=== PATIENT | male | born 1955 | race Caucasian/White ===

== ENCOUNTER 2025-04-12 14:45 | Emergency (ER) | payer MEDICARE, BC, SELFPAY ==
[2025-04-12] VITALS (9 sets, daily range): BP systolic 140–153; BP diastolic 62–85; BMI 35.3; BMI 37.0
[2025-04-12] MEDS: SUBLIMAZE 100 MCG IV (14:54)
--- NOTE | 2025-04-12 14:57 | ED.MUSCINJ ---
HPI-Injury
<Josef Baltazar PA-C - Last Filed: 04/12/25 17:38>
General
Chief Complaint: Musculo-Skeletal Complaint
Source: patient
Exam Limitations: none
Time Seen by Provider: 04/12/25 14:57
History of Present Illness-Injury
Initial Injury comments:
69-year-old male presents complaining of left hip pain starting today. He bent over and felt a pop. 3-1/2 weeks ago, he had a left hip replacement in [facility]. He lives here but knows a surgeon down there. He felt a pop and since then
has been unable to bear weight and complaining of significant pain.
Phy Exam
<Josef Baltazar PA-C - Last Filed: 04/12/25 17:38>
Physical Exam
Physical Exam:
General: Well-appearing male no acute respiratory distress
HEENT: Normocephalic atraumatic
Musculoskeletal exam: Left leg is shortened and internally rotated he is in significant pain with any motion of the hip
Injury Course
<Josef Baltazar PA-C - Last Filed: 04/12/25 17:38>
Orders/Labs/Results
Orders:
Orders
04/12/25 14:51
Hip, Left 2-3 Views [CR Hip - LT w/wo Pel 2-3 Vw*] Urgent
Comment:
Reason For Exam: hip pain
Include a pelvis x-ray?: Yes
04/12/25 14:53
Fentanyl Citrate/Pf [Sublimaze] 100 mcg .ROUTE .STK-MED ONE
04/12/25 14:54
Fentanyl Citrate/Pf [Sublimaze] 100 mcg IV NOW STA
diazePAM [Valium Injection] 10 mg .ROUTE .STK-MED ONE
04/12/25 15:26
diazePAM [Valium Injection] 2 mg IV NOW STA
04/12/25 15:39
Propofol [Diprivan] 20 ml .ROUTE .STK-MED
04/12/25 15:54
Propofol [Diprivan] 20 ml .ROUTE .STK-MED
04/12/25 15:56
CR Hip - LT without Pel 1 Vw Urgent
Comment: room 27
Reason For Exam: post reduction
<Andrea Machado, DO - Last Filed: 04/12/25 16:00>
Orders/Labs/Results
Orders:
Orders
04/12/25 14:51
Hip, Left 2-3 Views [CR Hip - LT w/wo Pel 2-3 Vw*] Urgent
Comment:
Reason For Exam: hip pain
Include a pelvis x-ray?: Yes
04/12/25 14:53
Fentanyl Citrate/Pf [Sublimaze] 100 mcg .ROUTE .STK-MED ONE
04/12/25 14:54
Fentanyl Citrate/Pf [Sublimaze] 100 mcg IV NOW STA
diazePAM [Valium Injection] 10 mg .ROUTE .STK-MED ONE
04/12/25 15:26
diazePAM [Valium Injection] 2 mg IV NOW STA
04/12/25 15:39
Propofol [Diprivan] 20 ml .ROUTE .STK-MED
04/12/25 15:54
Propofol [Diprivan] 20 ml .ROUTE .STK-MED
04/12/25 15:56
CR Hip - LT without Pel 1 Vw Urgent
Comment: room 27
Reason For Exam: post reduction
Procedures
<Andrea Machado DO - Last Filed: 04/12/25 16:00>
Moderate Sedation
ASA Risk Score: Class III
Chart and allergies reviewed: Yes
Consent for anesthesia obtained: Yes
Time out completed (validating right patient & procedure): Yes
Moderate Sedation Start Time(when first medication is given): 15:47
History of difficult intubation: No
Airway free of obstruction: Yes
Patient has a gag reflex: Yes
Patient is able to open mouth: Yes
Patient has no dentures: Yes
Patient has no loose teeth: Yes
Medication administered by Provider during Moderate Sedation: IV Propofol (mg)
Total dose administered: 200
Time drug administered: 15:49
Moderate Sedation Procedure End Time: 15:49
Joint/Fracture Reduction
Left Superior Hip:
Indication for procedure:: hip dislocatoin
Procedure completed by: Delaney / Jeannette
Consent form signed: Yes
Joint reduced: with anesthesia sedation
Injury was: closed
Further treatement: needs re-check only
Post reduction exam: stable
Capillary Refill: normal
Normal distal neurovascular exam?: Yes
<Josef Baltazar PA-C - Last Filed: 04/12/25 17:38>
MDM/Problems Addressed
Differential Diagnosis Includes:
Left hip pain after bending over feeling a pop with recent hip replacement. Suspect dislocation. X-rays pending. Pain medicine ordered.
<Josef Baltazar PA-C - Last Filed: 04/12/25 17:38>
*Pulse Oximetry
SaO2: 98
Oxygen Mode of Delivery: Room air
Patient hypoxic: no
*Critical Care Note
Total Time (30-74mins, 75-104mins- exclusive of procedures): Not Applicable
<Josef Baltazar PA-C - Last Filed: 04/12/25 17:38>
Update Note
Update Note:
Initial x-rays reported left hip dislocation. Written consent obtained for moderate sedation and hip reduction. Sedation performed by emergency room attending. The hip was reduced with the hip in flexion and longitudinal traction with internal
rotation. Postreduction films demonstrate successful hip reduction. Patient is placed in a knee immobilizer. He will follow-up with his doctor for further evaluation
ED Attending Note
<Josef Baltazar PA-C - Last Filed: 04/12/25 17:38>
-
Portions of this chart may have been created with voice recognition software.� Occasional wrong word or��sound alike� substitutions may have occurred due to the inherent limitations of voice recognition software.
Discharge Plan
Departure
Patient Disposition: Home (Routine Discharge)
Date of Disposition: 04/12/25
Time of Disposition: 17:37
Patient with high blood pressure during this ER visit?: No
Discharge Problem:
Dislocation, hip
Instructions: Knee Immobilizer (DC), MODERATE SEDATION ADULT
Referrals:
Pedro Luis Dinero MD [Family Provider, [facility]]
Activity Restrictions/Additional Instructions:
Use knee immobilizer. Avoid bending at the hip. Follow-up with your surgeon.
Interventions
Interventions:
*Risk Screen - Suicide Last Done: 04/12/25 14:46
*General Assessment Last Done: 04/12/25 14:46
*Neglect/Abuse Screening Last Done: 04/12/25 14:46
ED-Musculoskeletal Assessment Last Done: 04/12/25 16:02
Discharge Date and Time
Print Language: SYRIAN
[2025-04-12] MEDS: VALIUM INJECTION 2 MG IV (15:26)
== END 2025-04-12 18:09 | disposition home or self-care (01) ==
LOC: EMR 14:45
PROVIDERS: EMERGENCY PHYSICIAN Emergency Medicine; FAMILY PHYSICIAN Family Medicine
DX: T84.021A Dislocation of internal left hip prosthesis, initial encounter (principal); M25.552 Pain in left hip; X58.XXXA Exposure to other specified factors, initial encounter; Y79.2 Prosthetic and other implants, materials and accessory orthopedic devices associated with adverse incidents; Z98.890 Other specified postprocedural states; Z88.8 Allergy status to other drugs, medicaments and biological substances
CPT/HCPCS: 99285; 27265; 96374; 96375; 99152; 73501; 73502